=== PATIENT | male | born 1990 | race Hispanic/Latino ===

== ENCOUNTER 2024-10-25 20:49 | Emergency (ER) | payer SELFPAY ==
[~2024-10-25] VITALS: Ht 180.3 cm; Wt 81.6 kg
[2024-10-25 20:49] VITALS: TEMP 98.9
[2024-10-25] MEDS: KETOROLAC TROMETHAMINE 30 MG/ML VIAL IV ONE (21:39)
[2024-10-25] MEDS: FAMOTIDINE 20 MG/2 ML VIAL IV ONE (21:40)
[2024-10-25] MEDS: ONDANSETRON HCL INJ 2MG/ML 2ML 2 MG/ML VIAL IV ONE (21:40)
[2024-10-25] MEDS: ACETAMINOPHEN 325 MG TAB PO ONE (21:40)
[2024-10-25] MEDS: LACTATED RINGER'S 1,000 ML INJ ONE (21:42)
[2024-10-25] MEDS ORDERED: AMOX TR-K CLV1 EAC2 PO (22:47)
[2024-10-25] MEDS ORDERED: ONDANSETRON ODT4 MG PO (22:47)
[2024-10-25 22:48] VITALS: PULSE 88; RESP 18
[2024-10-25 22:55] VITALS: BP 126/75; PULSE 88; RESP 18; TEMP 98.9; O2SAT 100
== END 2024-10-25 22:55 | disposition home or self-care (01) ==
LOC: FSED 20:53
DX: R00.2 Palpitations (principal); R42 Dizziness and giddiness; R73.9 Hyperglycemia, unspecified; S50.872A Other superficial bite of left forearm, initial encounter; W54.0XXA Bitten by dog, initial encounter; F41.9 Anxiety disorder, unspecified; F32.A Depression, unspecified; Z11.52 Encounter for screening for COVID-19; R94.31 Abnormal electrocardiogram [ECG] [EKG]
CPT/HCPCS: 0223U; 70450; 71046; 80053; 80307; 81003; 82553; 83880; 84484; 85025; 85379; 85610; 87400; 99284; J1885; J2405; J7121; 93005